=== PATIENT | male | born 1980 | race Hispanic/Latino ===

== ENCOUNTER 2020-12-28 10:51 | Emergency (ER) | payer MEDICAID ==
[2020-12-28] MEDS ORDERED: KETOROLAC 30MG VIAL (30MG/ML) ONE (12:16)
[2020-12-28] MEDS ORDERED: HYDROCODONE/ACETAMINOPHEN 10/325 MG TAB ONE (12:17)
[2020-12-28] MEDS ORDERED: CYCLOBENZAPRINE HCL 10 MG TABLET ONE (12:17)
[2020-12-28 12:34] LABS: BASOPHILS % (AUTO) 0.7 % (0.0-5.0); EOSINOPHILS % (AUTO) 1.5 % (0.0-8.0); HEMATOCRIT 44.9 % (42-54); LYMPHOCYTES % (AUTO) 26.5 % (21.0-51.0); MEAN CORPUSCULAR HGB CONC 33.4 g/dL (32.0-36.0); MEAN CORPUSCULAR VOLUME 98.9 fL (79-99); MONOCYTES % (AUTO) 10.8 % (3.0-13.0); PLATELET COUNT (AUTO) 199 K/uL (130-400); RED BLOOD CELL COUNT(AUTO) 4.54 MIL/uL (4.50-6.20); RED CELL DISTRIBUTION WIDTH 12.1 % (11.0-15.5)
[2020-12-28 12:49] LABS: ALBUMIN 3.1 g/dL (3.5-5.0); BILIRUBIN,TOTAL 0.2 mg/dL (0.2-1.0); CREATININE 0.8 mg/dL (0.5-1.5); POTASSIUM 4.2 mmol/L (3.5-5.1); TOTAL PROTEIN, SERUM 6.8 g/dL (6.0-8.3)
[2020-12-28] MEDS ORDERED: 0.9%NACL 1000ML 1,000 ML IV ONE (14:16)
[2020-12-28] MEDS ORDERED: INSULIN HUMULIN R 100 UNIT/ML 3ML ONE (14:16)
== END 2020-12-28 15:03 | disposition home or self-care (01) ==
LOC: EDH 10:51
DX: S16.1XXA Strain of muscle, fascia and tendon at neck level, initial encounter (principal); S30.1XXA Contusion of abdominal wall, initial encounter; S20.219A Contusion of unspecified front wall of thorax, initial encounter; I25.10 Atherosclerotic heart disease of native coronary artery without angina pectoris; J44.9 Chronic obstructive pulmonary disease, unspecified; E11.9 Type 2 diabetes mellitus without complications; I10 Essential (primary) hypertension; V49.9XXA Car occupant (driver) (passenger) injured in unspecified traffic accident, initial encounter; Y93.89 Activity, other specified; Y92.488 Other paved roadways as the place of occurrence of the external cause; Y99.8 Other external cause status
CPT/HCPCS: 36415; 70450; 71045; 72125; 74176; 80053; 82948; 84484; 85025; 93005; 96361; 96374; 96375; 99285; J1815; J1885; J7030

== ENCOUNTER 2023-07-16 06:02 | Day surgery (SDC) | payer MEDICAID ==
[2023-07-14 15:32] LABS: BASOPHILS # (AUTO) 0.05 K/uL (0.00-0.20); BASOPHILS % (AUTO) 0.6 % (0.0-5.0); EOSINOPHILS # (AUTO) 0.17 K/uL (0.00-0.70); HEMATOCRIT 47.8 % (42-54); IMMATURE GRANULOCYTE ABSOLUTE 0.02 K/uL (0-1); INR < 0.93 (0.85-1.15); LYMPHOCYTES # (AUTO) 1.9 K/uL (1.0-4.8); LYMPHOCYTES % (AUTO) 21.6 % (21.0-51.0); MEAN CORPUSCULAR HEMOGLOBIN 32.4 pg (27.0-33.0); MEAN CORPUSCULAR HGB CONC 33.7 g/dL (32.0-36.0); MEAN CORPUSCULAR VOLUME 96.2 fL (79-99); MONOCYTES # (AUTO) 0.6 K/uL (0.1-1.0); MONOCYTES % (AUTO) 6.5 % (3.0-13.0); NEUTROPHILS % (AUTO) 69.1 % (40.0-77.0); PLATELET COUNT (AUTO) 265 K/uL (130-400); POTASSIUM 3.9 mmol/L (3.5-5.1); PROTHROMBIN TIME 10.3 SEC (9.6-11.6); RED BLOOD CELL COUNT(AUTO) 4.97 MIL/uL (4.50-6.20); WHITE BLOOD COUNT (AUTO) 8.6 K/uL (4.8-10.8)
[2023-07-14 15:33] LABS: PARTIAL THROMBOPLASTIN TIME 27.8 SEC (26.3-35.5)
[2023-07-14 16:04] VITALS: BP 134/82; PULSE 100; RESP 18
[~2023-07-16] VITALS: Ht 165.1 cm; Wt 140.8 kg
[2023-07-16] VITALS (29 sets, daily range): BP systolic 102–175; BP diastolic 62–110; PULSE 95–141; RESP 14–24
[~2023-07-16 06:02] MED LIST: ALPR0.5T8 PO; METF-446 PO; METO25 PO
[2023-07-16 06:27] LABS: CREATININE 0.7 mg/dL (0.5-1.5); POTASSIUM 4.1 mmol/L (3.5-5.1)
[2023-07-16] MEDS ORDERED: 0.9%NACL 1000ML 1,000 ML IV ONE (07:04)
[2023-07-16] MEDS ORDERED: LIDOCAINE HCL 1% MDV 50ML VIAL ONE (07:23)
[2023-07-16] MEDS ORDERED: CEFAZOLIN SODIUM 1 GM VIAL ONE (07:23)
[2023-07-16] MEDS ORDERED: MEPERIDINE-PF 25 MG/ML SYG ONE ×2 (07:24→09:37)
[2023-07-16] MEDS ORDERED: BUPIVACAINE/PF 0.25% 30ML VIAL IJ ONE (07:24)
[2023-07-16] MEDS ORDERED: MIDAZOLAM HCL 1 MG/ML 2ML VIAL ONE (07:24)
[2023-07-16] MEDS ORDERED: PROPOFOL 1000 MG/100 ML 100 ML IV ONE (08:00)
[2023-07-16] MEDS ORDERED: KETAMINE 50MG/ML SYRINGE 50 MG/ML DISP.SYRIN ONE (08:01)
[2023-07-16] MEDS ORDERED: BACITRACIN 1 EACH PACKET TP ONE (08:31)
[2023-07-16] MEDS ORDERED: METF-446 PO (08:56)
[2023-07-16] MEDS ORDERED: METO25 PO (08:56)
[2023-07-16] MEDS ORDERED: ACETAMINOPHEN WITH CODEINE 1 TAB TAB PO PRN (09:00)
[2023-07-16] MEDS ORDERED: IPRATROPIUM/ALBUTEROL SULFATE 3 ML SOLUTION IH ONE ×2 (09:16→10:30)
[2023-07-16] MEDS ORDERED: ESMOLOL HCL 10 MG/ML 10 ML VIAL ONE (09:31)
[2023-07-16] MEDS ORDERED: METOPROLOL TARTRATE 1 MG/ML 5ML VIAL IV ONE ×2 (09:59→11:00)
== END 2023-07-16 13:05 | disposition home or self-care (01) ==
LOC: DAH 06:02
PROVIDERS: ATTEND Internal Medicine Cardiovascular Disease
DX: Z45.010 Encounter for checking and testing of cardiac pacemaker pulse generator [battery] (principal); I44.2 Atrioventricular block, complete; E11.9 Type 2 diabetes mellitus without complications; E66.01 Morbid (severe) obesity due to excess calories; G47.33 Obstructive sleep apnea (adult) (pediatric); F31.9 Bipolar disorder, unspecified; F17.210 Nicotine dependence, cigarettes, uncomplicated; Z79.899 Other long term (current) drug therapy; Z98.890 Other specified postprocedural states; Z79.4 Long term (current) use of insulin; Z68.43 Body mass index [BMI] 50.0-59.9, adult; Z72.89 Other problems related to lifestyle
CPT/HCPCS: 80048 ×2; 85025; 85610; 85730; 36415 ×2; 93005; 33228; 82948 ×2; 94640; A4223 ×3; C1785; J0690; J3490 ×6; J7030; J2250; J2175 ×2; A4215; A4222; A4221; A4663; A4216; A4606; 99156; 99157; J2704

== ENCOUNTER 2024-12-24 10:31 | Emergency (ER) | payer MEDICAID ==
[~2024-12-24] VITALS: Ht 165.1 cm; Wt 127.0 kg
--- NOTE | 2024-12-24 10:52 | NUR ---
CALLED PT, NO ANSWER, WAS TOLD BY SECURITY HE IS IN THE REST ROOM
--- NOTE | 2024-12-24 11:08 | ERN ---
ED Note History of Present Illness Stated Complaint: FELL, RIGHT PALM LACERATION Chief Complaint: Hand Problem/Injury Time Seen by MD: 10:33 Time Seen by Midlevel: 10:33 Dictation: 44-year-old male history of HTN, and DM, presents to the ED for evaluation laceration to his right palm occurred two days with a piece of glass. Reports full range of motion in fingers. Allergies: Coded Allergies: No Known Drug Allergies (Verified Allergy, 06/07/12) Home Meds Active Scripts Amoxicillin/Potassium Clav (Amox Tr-K Clv 875-125 mg Tab) 875 Mg-125 Mg Tablet, 1 EACH PO BID for 7 Days, #14 TAB 0 Refills Prov:CONCETTA MEJIA 12/24/24 Acetaminophen (Acetaminophen) 500 Mg Tablet, 1 TAB PO Q6HPRN PRN for pain or fever for 15 Days, #60 TAB 0 Refills Prov:CONCETTA MEJIA 12/24/24 Metformin HCl (Metformin HCl) 1,000 Mg Tablet, 1 TAB PO BID, #60 TAB 0 Refills Prov:NATALIA ROMAN MD 07/16/23 Metoprolol Tartrate (Lopressor) 25 Mg Tab, 1 TAB PO BID, #60 TAB 0 Refills Prov:NATALIA ROMAN MD 07/16/23 Reported Medications Alprazolam (Alprazolam) 0.5 Mg Tablet, 2 MG PO BID PRN for ANXIETY/AGITATION 07/14/23 Past Medical History Past Medical History: Diabetes-Type II, High Cholesterol, Hypertension Surgical History: Other Surgical History Other: LEFT LEG REMOVED DUE TO TRAUMA Review of System Dictation CONSTITUTIONAL: Negative except for HPI HEAD/FACE: Negative except for HPI EENT: Negative except for HPI RESPIRATORY: Negative except for HPI GASTROINTESTINAL/ABDOMINAL: Negative except for HPI GENITOURINARY: Negative except for HPI MUSCULOSKELETAL: Negative except for HPI INTEGUMENTARY: Negative except for HPI NEUROLOGICAL/PSYCH: Negative except for HPI HEMATOLOGIC/LYMPHATIC: Negative except for HPI All Systems Negative, Except as noted above. 13 point review of systems assessed and all negative except for above. Review of Systems: was completed Initial Vital Sign VS Vital Signs Date Time Temp Pulse Resp B/P (MAP) Pulse Ox O2 Delivery O2 Flow Rate FiO2 12/24/24 10:56 97.9 84 16 109/84 98 Room Air 12/24/24 11:44 0 21 Physical Exam Dictation PHYSICAL EXAM: GENERAL: alert,, awake oriented x 3 SKIN: 2cm laceration to palmar aspect of right hand, neurovascularly intact, normal capillary refill < 2seconds HEENT: EOMI, Sclera non icteric, moist mucosa NECK: Supple, no JVD, trachea midline LUNGS: Clear breath sounds bilaterally. No wheezes HEART: Regular rate and rhythm. Normal S1 and S2, without murmurs ABD: Abdomen soft, nontender. Bowel sounds present EXT: No clubbing or cyanosis, NEURO: Alert and oriented to person, follows commands Results (Laboratory/Radiology) Laboratory/Radiology REASON: r/o foreign body ORDERING PHYSICIAN: CONCETTA MEJIA PROCEDURE: HAND 3V RT - HAND 3+VWS RT Exam Type: HAND 3+VWS RT Clinical Information: r/o foreign body Comparison: None Findings: The bone examination is unremarkable. No fractures or dislocations are seen. No radiopaque foreign bodies are noted. Soft tissues are preserved. IMPRESSION: Normal examination. Labs Reviewed?: Yes X-RAY Comment: No acute findings on x-ray ED Course ED Course Orders Procedure Category Date Status Time Hand 3+Vws Rt RAD 12/24/24 Resulted 11:03 Diph,Pertuss(Acell),Tet PHA 12/24/24 Complete Vac/Pf (Tdap) 11:30 Current Medications Medications (Trade) Dose Ordered Sig/Pattie Route PRN Reason Start Time Stop Time Status Last Admin Dose Admin Diphtheria/ Tetanus/Acell Pertussis (Tdap) 0.5 ml ONCE ONCE IM 12/24/24 11:30 12/24/24 11:31 DC 12/24/24 11:50 Vital Signs Date Time Temp Pulse Resp B/P (MAP) Pulse Ox O2 Delivery O2 Flow Rate FiO2 12/24/24 11:44 98.2 82 16 109/80 98 Room Air* 0 21 12/24/24 10:56 97.9 84 16 109/84 98 Room Air Medical Decision Making MDM MDM: Differential diagnosis: Hand laceration, dirty wound There are no social concerns with this patient. Prescription drug management Prescriptions will include: Medical management and examination interpretation discussions were had by me with other qualified healthcare professionals as indicated for the patient's care. 44-year-old male history of HTN, and DM, presents to the ED for evaluation laceration to his right palm occurred two days with a piece of glass. Reports full range of motion in fingers. 2cm laceration to palmar aspect of right hand, neurovascularly intact, normal capillary refill < 2seconds. Patient will be updated on Tdap and x-ray will be ordered to rule out retained foreign body. Patient was poor hygiene it was thoroughly irrigated with in his, chlorhexidine. I went ahead and place him Steri-Strips over the wound due to duration of laceration 3 days ago will not perform sutures and that wound heal by secondary intention. Educated patient on this as well. Patient will be discharged home with antibiotics and expressed strict return precautions. Recommended follow up PCP in 1-2 days. Patient verbalized understanding, agrees with plan, and all questions are answered at this time. DX & DISP Disposition: Discharge Departure Impression: Primary Impression: Laceration of right palm without complication Condition: Stable Scripts Amoxicillin/Potassium Clav (Amox Tr-K Clv 875-125 mg Tab) 875 Mg-125 Mg Tablet 1 EACH PO BID for 7 Days, #14 TAB 0 Refills Prov: CONCETTA MEJIA 12/24/24 Acetaminophen (Acetaminophen) 500 Mg Tablet 1 TAB PO Q6HPRN PRN for pain or fever for 15 Days, #60 TAB 0 Refills Prov: CONCETTA MEJIA 12/24/24 Additional Instructions: Please follow up with your primary care doctor in 1-2 days. Return if start noticing surrounding redness, discharge, developed fever. Referrals: ANA STOVALL (PCP) I have reviewed the case, and I agree with, Diagnosis and Plan CONCETTA MEJIA Dec 24, 2024 11:08
[2024-12-24 11:44] VITALS: BP 109/80; PULSE 82; RESP 16; TEMP 98.3; O2SAT 98
[2024-12-24] MEDS: DIPH,PERTUSS(ACELL),TET VAC/PF 0.5 ML VIAL IM ONE (11:50)
[2024-12-24] MEDS ORDERED: AMOX1TAB16 PO (12:26)
[2024-12-24] MEDS ORDERED: ACET-66 PO (12:26)
--- NOTE | 2024-12-24 13:26 | HMCIMG ---
Exam Type: HAND 3+VWS RT Clinical Information: r/o foreign body Comparison: None Findings: The bone examination is unremarkable. No fractures or dislocations are seen. No radiopaque foreign bodies are noted. Soft tissues are preserved. IMPRESSION: Normal examination.
== END 2024-12-24 12:42 | disposition home or self-care (01) ==
LOC: EDH 10:31
DX: S61.411A Laceration without foreign body of right hand, initial encounter (principal); E11.9 Type 2 diabetes mellitus without complications; E78.00 Pure hypercholesterolemia, unspecified; I10 Essential (primary) hypertension; Z79.84 Long term (current) use of oral hypoglycemic drugs; Z79.899 Other long term (current) drug therapy; Z98.890 Other specified postprocedural states; W25.XXXA Contact with sharp glass, initial encounter; Y93.89 Activity, other specified; Y92.89 Other specified places as the place of occurrence of the external cause; Y99.8 Other external cause status
CPT/HCPCS: 73130; 90471; 90715; 99283